=== PATIENT | female | born 1970 | race Hispanic/Latino ===

== ENCOUNTER 2025-08-16 15:33 | Emergency (ER) | payer BC, SELFPAY ==
--- NOTE | 2025-08-16 16:34 | RAD REPORT ---
Extremity Venous Uni Ltd CLINICAL INDICATION: Female, 55 years old.PAIN TECHNIQUE: Complete duplex sonography of the lower extremity veins was performed of the affected limb . The examination included compression for vein patency, color Doppler imaging and flow augmentation in response to distal compression of the distal external iliac, common femoral, femoral, popliteal, peroneal, tibial and great saphenous veins. [id number]. COMPARISON: No prior exams FINDINGS: Duplex sonography imaging demonstrates all deep veins examined to be fully compressible with spontane ous, phasic and augmented flow in the affected limb. IMPRESSION: No evidence of deep venous thrombosis in the left lower extremity.
--- NOTE | 2025-08-16 16:39 | EDPHYS ---
Physician Documentation [facility] Name: Kirstie Reed Age: 55 yrs Sex: Female : 1970 Arrival Date: 08/16/2025 Time: 15:33 Bed 14 Private MD: ED Physician Edson Ansari HPI: 08/16 16:03 This 55 yrs old Female presents to ER via Ambulatory with complaints of Leg kb Swelling. 16:03 Patient is a 55-year-old female who presents for pain to left calf that started 1 week kb ago. States it feels swollen and it is red at times. Denies shortness of breath or chest pain. Does take hormone pellets. DIRECTOR OF PROPERTY MANAGEMENT: 16:46 LMP N/A - control method, Not me1 Historical: - Allergies: 15:45 No Known Allergies; hb - PMHx: 15:45 None; hb - PSHx: 15:45 None; hb - Immunization history:: Adult Immunizations up to date. - Infectious Disease History:: Denies. - Social history:: Smoking status: unknown. ROS: 16:04 Constitutional: As per HPI kb Exam: 16:04 Constitutional: This is a well developed, well nourished patient who is awake, alert, kb and in no acute distress. Head/Face: Normocephalic, atraumatic. ENT: Moist Mucous membranes Respiratory: Respirations even and unlabored. No increased work of breathing. Talking in full sentences Skin: Warm, dry with normal turgor. Normal color. MS/ Extremity: Pulses equal, no cyanosis. Neurovascular intact. Full, normal range of motion. Neuro: Awake and alert, GCS 15, oriented to person, place, time, and situation. Vital Signs: 15:44 BP 127 / 77; Pulse 72; Resp 16; Temp 97.6; Pulse Ox 100% on R/A; Weight 63.5 kg; Height hb 5 ft. 1 in. ; Pain 3/10; 16:43 BP 128 / 76; Pulse 70; Resp 15; Temp 97.9; Pulse Ox 100% ; me1 15:44 Body Mass Index 26.45 (63.50 kg, 154.94 cm) hb 15:44 Pain Scale: Adult hb MDM: 15:38 Medical Screening Exam initiated kb 16:04 Data reviewed: vital signs, nurses notes. Historians other than the Patient: Friend: buffy Friend. 16:39 Differential diagnosis: contusion, tendonitis, dvt. Counseling: I had a detailed kb discussion with the patient and/or guardian regarding the historical points, exam findings, and any diagnostic results supporting the discharge/admit diagnosis, radiology results, the need for outpatient follow up, a family practitioner, to return to the emergency department if symptoms worsen or persist or if there are any questions or concerns that arise at home. 08/16 15:45 Order name: US Extremity Venous Unilateral Ltd; Complete Time: 16:36 ap3 Administered Medications: No medications were administered Disposition Summary: 08/16/25 16:39 Discharge Ordered Notes: Location: Home kb Condition: Stable kb Diagnosis - Pain in left lower leg kb Followup: kb - With: Emergency Department - When: As needed - Reason: Worsening of condition Followup: kb - With: Private Physician - When: 2 - 3 days - Reason: Recheck today's complaints, Continuance of care, Re-evaluation by your physician Discharge Instructions: - Discharge Summary Sheet kb - Musculoskeletal Pain kb Forms: - Medication Reconciliation Form kb - Antibiotic Education kb - Prescription Opioid Use kb - Patient Portal Instructions kb - Leadership Thank You Letter kb Signatures: Dispatcher [employer] Angelic Madden, CANDY MAKER-C CANDY MAKER-Emily Duarte, RN RN Kellen Badillo, RN RN me1
--- NOTE | 2025-08-16 16:39 | ER ---
Nurse's Notes [facility] Name: Kirstie Reed Age: 55 yrs Sex: Female : 1970 Arrival Date: 08/16/2025 Time: 15:33 Bed 14 Private MD: Diagnosis: Pain in left lower leg Presentation: 08/16 15:44 Chief complaint: EMS states: LLE pain that started 10 days ago. Coronavirus screen: At hb this time, the client does not indicate any symptoms associated with coronavirus-19. Ebola Screen: No symptoms or risks identified at this time. Initial Sepsis Screen: Does the patient meet any 2 criteria? No. Patient's initial sepsis screen is negative. Does the patient have a suspected source of infection? No. Patient's initial sepsis screen is negative. Risk Assessment: Do you want to hurt yourself or someone else? Patient reports no desire to harm self or others. Onset of symptoms was August 06, 2025. 15:44 Method Of Arrival: Ambulatory hb 15:44 Acuity: MAHIN 3 hb DIRECTOR EPIDEMIOLOGY: 16:46 LMP N/A - control method, Not me1 Historical: - Allergies: 15:45 No Known Allergies; hb - PMHx: 15:45 None; hb - PSHx: 15:45 None; hb - Immunization history:: Adult Immunizations up to date. - Infectious Disease History:: Denies. - Social history:: Smoking status: unknown. Screenin:35 [facility] ED Fall Risk Assessment (Adult) History of falling in the last 3 months, me1 including since admission No falls in past 3 months (0 pts) Confusion or Disorientation No (0 pts) Intoxicated or Sedated No (0 pts) Impaired Gait No (0 pts) Mobility Assist Device Used No (0 pt) Altered Elimination No (0 pt) Score/Fall Risk Level 0 - 2 = Low Risk Maintained a safe environment, Provided non-skid footwear, Hourly rounding (assess needs \T\ fall precautionary measures) done. Abuse screen: Denies threats or abuse. Nutritional screening: No deficits noted. Tuberculosis screening: No symptoms or risk factors identified. Assessment: 16:35 General: Appears in no apparent distress. Behavior is calm, cooperative, appropriate me1 for age, Reports LLE pain that started 10 days ago. Pain: Complains of pain in left leg Pain does not radiate. Pain currently is 3 out of 10 on a pain scale. Quality of pain is described as tender, Pain began gradually, Is continuous. Neuro: Level of Consciousness is awake, alert, obeys commands, Oriented to person, place, time, situation, Appropriate for age. Cardiovascular: Patient's skin is warm and dry. Respiratory: Airway is patent Respiratory effort is even, unlabored, Respiratory pattern is regular, symmetrical. GI: No signs and/or symptoms were reported involving the gastrointestinal system. : No signs and/or symptoms were reported regarding the genitourinary system. EENT: No signs and/or symptoms were reported regarding the EENT system. Derm: Skin is intact, is healthy with good turgor, Skin is pink, warm \T\ dry. Musculoskeletal: Swelling present in left leg Reports pain in left leg since about 10 days ago. Vital Signs: 15:44 BP 127 / 77; Pulse 72; Resp 16; Temp 97.6; Pulse Ox 100% on R/A; Weight 63.5 kg; Height hb 5 ft. 1 in. ; Pain 3/10; 16:43 BP 128 / 76; Pulse 70; Resp 15; Temp 97.9; Pulse Ox 100% ; me1 15:44 Body Mass Index 26.45 (63.50 kg, 154.94 cm) hb 15:44 Pain Scale: Adult hb ED Course: 15:36 Patient arrived in ED. al6 15:38 Angelic Sweet FNP-C is [facility]. kb 15:38 Edson Ansari MD is Attending Physician. kb 15:45 Triage completed. hb 15:46 Arm band placed on. hb 16:28 US Extremity Venous Unilateral Ltd In Process Unspecified. EDMS 16:35 Patient has correct armband on for positive identification. Bed in low position. Call me1 light in reach. Side rails up X2. Provided Education on: POC. Verbalized understanding.. Client placed on continuous cardiac and pulse oximetry monitoring. NIBP monitoring applied. Pulse ox on. NIBP on. 16:35 No provider procedures requiring assistance completed. Patient did not have IV access me1 during this emergency room visit. 16:40 Kellen Badillo, CARMEN is Primary Nurse. me1 Administered Medications: No medications were administered Medication: 16:35 VIS not applicable for this client. me1 Outcome: 16:39 Discharge ordered by . buffy 16:46 Discharged to home ambulatory, ca1 16:46 Condition: stable 16:46 Discharge instructions given to patient, Instructed on discharge instructions, follow up and referral plans. Demonstrated understanding of instructions, follow-up care, 16:47 Patient left the ED. me1 Signatures: Dispatcher [employer] EDAngelic Bennett, ELECTRONICS REPAIR TECHNICIAN-C ELECTRONICS REPAIR TECHNICIAN-Emily Duarte RN CARMEN Kellen Badillo RN RN me1 Janet Mancia6 Corrections: (The following items were deleted from the chart) 16:40 15:44 Chief complaint: EMS states: LLE pain that started 10 days ago. [facility]
[2025-08-16 17:39] VITALS: O2SAT 100
[2025-08-16 17:40] VITALS: BP 128/76; TEMP 97.9
== END 2025-08-16 16:47 | disposition home or self-care (01) ==
LOC: ER 15:33
DX: M79.662 Pain in left lower leg (principal)
CPT/HCPCS: 93971; 99283